=== PATIENT | male | born 1960 | race Caucasian/White ===

== ENCOUNTER 2019-07-23 08:06 | Emergency (ER) | payer OTHER ==
[~2019-07-23] VITALS: Ht 180.3 cm; Wt 96.1 kg
--- NOTE | 2019-07-23 08:52 | NUR ---
SENIOR INSTRUMENTATION ENGINEER: PT AMBULATORY TO ROOM FROM LOBBY
--- NOTE | 2019-07-23 08:53 | NUR ---
PT AMBULATED BACK TO ROOM WITH CHECK INSPECTOR. Addendum: 07/23/19 at 0923 by HBENSON PT STATES HIS TWO MONTHS AGO. [employer] PROVIDED TO PT BY CHECK INSPECTOR. Addendum: 07/23/19 at 1004 by HBENSON PT'S ONE MONTH AGO
--- NOTE | 2019-07-23 09:10 | NUR ---
PT TO XR VIA WC.
--- NOTE | 2019-07-23 09:21 | NUR ---
ERP AT NOW.
--- NOTE | 2019-07-23 09:41 | NUR ---
PT MEDICATED WITH NORCO FOR PAIN. UNDERSTANDS POC.
--- NOTE | 2019-07-23 10:23 | NUR ---
PT STATES NORCO HELPED "A LITTLE". STILL C/O R SIDED RIB PAIN 03/09. ERP NOTIFIED.
[2019-07-23] MEDS ORDERED: SODIUM CHLORIDE FLUSH 10ML SYR IVF ONE (10:30)
[2019-07-23] MEDS ORDERED: LORazepam 2 MG/ML, 1ML ONE (10:31)
[2019-07-23] MEDS ORDERED: HYDROmorphone 1 MG/ML, 1ML INJ ONE (10:31)
[2019-07-23] MEDS: HYDROmorphone 2 MG/ML, 1ML IVPush PRN (10:35)
--- NOTE | 2019-07-23 10:36 | NUR ---
ERP WAS IN FOR RECHECK. PT MEDICATED FOR PAIN AND SHAKINESS. TO CT VIA [facility].
--- NOTE | 2019-07-23 10:50 | NUR ---
PT VERBALIZES RELIEF AFTER IV DILAUDID & ATIVAN. SPO2 WAS 88% ON RA, PLACED ON 2L O2 NC. INSTRUCTED ON INCENTIVE SPIROMETER USE, PT USING IN BED NOW.
[2019-07-23] MEDS ORDERED: OMNIPAQUE 350 MG/ML, 100ML BOTTLE ONE (10:53)
[2019-07-23] MEDS ORDERED: LORazepam 2 MG/ML, 1ML IVPush PRN (11:30)
--- NOTE | 2019-07-23 11:54 | NUR ---
ERP AT FOR RECHECK.
[2019-07-23 12:05] VITALS: BP 134/91
--- NOTE | 2019-07-23 12:16 | NUR ---
LISET ORTEGA AT FOR R WRIST SPLINT APPLICATION.
--- NOTE | 2019-07-23 12:26 | NUR ---
D/C INSTRUCTIONS, MEDS & F/U APPT PROVIDED TO PT, HE VERBALIZES UNDERSTANDING. RX GIVEN X2. INCENTIVE SPIROMETER GIVEN TO PT. PT AMBULATED OUT OF ED WITHOUT DIFFICULTY. CAB VOUCHER PROVIDED.
== END 2019-07-23 12:27 | disposition home or self-care (01) ==
LOC: ED 09:37
DX: S22.41XA Multiple fractures of ribs, right side, initial encounter for closed fracture (principal); F17.200 Nicotine dependence, unspecified, uncomplicated; E11.9 Type 2 diabetes mellitus without complications; W10.9XXA Fall (on) (from) unspecified stairs and steps, initial encounter; Y93.89 Activity, other specified; Y92.009 Unspecified place in unspecified non-institutional (private) residence as the place of occurrence of the external cause; Y99.8 Other external cause status
CPT/HCPCS: 29125; 71101; 71260; 73110; 73130; 96374; 96375; 99284; J1170; J2060; Q9967

== ENCOUNTER 2021-01-08 22:59 | Emergency (ER) | payer MEDICAID ==
[~2021-01-08] VITALS: Ht 177.8 cm; Wt 79.9 kg
[2021-01-08 23:01] VITALS: BP 148/81
--- NOTE | 2021-01-08 23:53 | NUR ---
larder cook: pt from lobby to room 19
[2021-01-09] MEDS ORDERED: SODIUM CHLORIDE 0.9% 1,000ML IVBOLUS ONE (00:30)
[2021-01-09] MEDS ORDERED: PROPOFOL 10 MG/ML, 20ML IVPush ONE (00:30)
[2021-01-09] MEDS ORDERED: PROPOFOL 10 MG/ML, 20ML ONE ×2 (00:37→01:25)
--- NOTE | 2021-01-09 00:43 | NUR ---
PT MOVED TO ROOM TRAUMA2, FOR CONSCIOUSS SEDATION PROCEDURE TO ENDOSCOPE PTS ESOPHAGUS. PT ON FULL CR MONITOR, CONSENT OBTAINED FROM PT FOR PROCEDURE, PAPERWORK AT BEDSIDE, MEDS READY, PT ON CO2 DETECTOR, AND PIV TO LEFT AC STARTED, 18G X1 ATTEMPT, AND 1 LITER NS FLUIDS FLOWING TKO.
--- NOTE | 2021-01-09 00:50 | NUR ---
PT WENT UNDER CONSCIOUS SEDATION PROCEDURE, FROM THIS TIME UNTIL 144. SEE SEDATION PAPERWORK FOR V/S AND NOTES. PT TOOK A TOTAL OF 440 MG OF PROPOFOL AND 90 MG OF KETAMINE. PT RECOVERED WITHOUT ISSUE.
[2021-01-09] MEDS ORDERED: KETAMINE 10 MG/ML, 20ML ONE (01:38)
--- NOTE | 2021-01-09 02:26 | NUR ---
PT AWAKE AND CONVERSING. A&O X 4. DISCHARGE INSTRUCTIONS Patient/Caregiver given discharge instructions and they have confirmed that they understand the instructions. Patient ambulatory with steady gait. NAD, all questions answered appropriately, denies additional needs at this time. No personal belongings left in room after discharge.
--- NOTE | 2021-01-09 03:02 | NUR ---
F/U AND D/C INSTRUCTIONS GIVEN TO PT WITH PRESCRIPTION, A CAB VOUCHER AND WORK EXCUSE. PT HAS A PHOTO COPY OF HIS GI ENDOSCOPY. PT AMBULATORY, AND UP TO BATHROOM, AND ALSO CHANGED. PT ESCORTED TO DISCHARGE DESK, AND D/C'D WITHOUT ISSUE.
== END 2021-01-09 03:12 | disposition home or self-care (01) ==
LOC: ED 01-09 02:30
DX: T18.128A Food in esophagus causing other injury, initial encounter (principal); I10 Essential (primary) hypertension; E11.9 Type 2 diabetes mellitus without complications; X58.XXXA Exposure to other specified factors, initial encounter; Y93.89 Activity, other specified; Y92.89 Other specified places as the place of occurrence of the external cause; Y99.8 Other external cause status
CPT/HCPCS: 43247; 96360; 99152; 99153; 99285; J7030